=== PATIENT | male | born 1985 | race Caucasian/White ===

== ENCOUNTER 2017-05-07 10:58 | Emergency (ER) | payer MEDICAID ==
[2017-05-07] MEDS ORDERED: HYDROmorphone 2 MG/ML SDV IM ONE (11:23)
[2017-05-07] MEDS ORDERED: Ondansetron 8 MG Tab.DIS PO ONE (11:24)
[2017-05-07 11:50] VITALS: BP 146/94
--- NOTE | 2017-05-10 15:08 | ER ---
DATE SEEN: 05/07/2017 TIME SEEN: The patient was seen at 1108 hours. HISTORY OF PRESENT ILLNESS: Yesterday, he washed his truck. He had mild low back pain noted. He laid down. After he woke up, he could not walk, as he had so much back discomfort. He has occasional mild right leg numbness minimal proximal thigh, but that is infrequent. He has no difficulty passing urine or stool or incontinence of either. No loss of sensation in lower extremities. No paresthesias or hypoesthesia in lower extremities presently. He has marked pain with walking. He walks bent over. His weight is 302 pounds. Rarely has alcohol, maybe once a week, and smoking negative. He has been taking care of his daughter this week, who he thinks has genetic abnormalities, although genetic tests turned out normal. Review of the patient's [place] Prescribing Monitoring Program shows no evidence for use of narcotics. MEDICATIONS: The patient is not on any medicines currently. ALLERGIES: Penicillin. REVIEW OF SYSTEMS: Otherwise negative, except he is obese at 302 pounds. PHYSICAL EXAMINATION: VITAL SIGNS: Blood pressure 146/94, heart rate 72, respirations 18, oxygen saturation 98%, and temperature is 36.6 degrees centigrade. 136.985 kg. GENERAL: Alert fellow who is lying on his left side. He has marked pain. He does not want to move. Moving on the bed causes marked pain. HEENT: PERRLA intact. Pharynx without abnormality. LUNGS: Clear. HEART: Without murmur. ABDOMEN: Markedly increased abdominal girth. Obese. EXTREMITIES: Mild paraspinal muscle discomfort left and right paraspinal area, L3, 4, 5, more on the right, less on the left. No spinous process tenderness. No interspinous process tenderness. Straight leg raise markedly painful on the right, none on the left. No hypoesthesia. Deep tendon reflexes upper and lower extremities symmetrical 1+ normoactive. ASSESSMENT: 1. Low back strain, possible disk involvement. 2. Extensive obesity (302 pounds). 3. No chemical abuse noted. [place] Prescribing Program is negative database for him. PLAN: 1. Robaxin 750 mg q.i.d. 2. Twelve tabs of Percocet 325-7.5 mg, 1 tablet q.4 hours p.r.n. pain. 3. Tylenol 1000 mg and ibuprofen 600 mg, take together every 6 hours for pain. For breakthrough pain, use Percocet. 4. I have noted to him that we have an opioid epidemic in this country and the CDC suggests that there is less chance of becoming opioid dependent in 1 year if no more than 3 days of narcotic given to the patient. The patient to follow up with doctor in a week, earlier if worse. He had a good response to the pain injection. /[id number] ANNIKA/TENZIN MAHAJAN
== END 2017-05-07 11:50 | disposition home or self-care (01) ==
LOC: FB.ED 10:58
DX: S39.012A Strain of muscle, fascia and tendon of lower back, initial encounter (principal); E66.9 Obesity, unspecified; Z88.0 Allergy status to penicillin; X50.9XXA Other and unspecified overexertion or strenuous movements or postures, initial encounter; Y93.89 Activity, other specified
CPT/HCPCS: 96372; 99283; A9270; J1170

== ENCOUNTER 2017-05-16 05:33 | Emergency (ER) | payer MEDICAID ==
[2017-05-16] MEDS ORDERED: Ketorolac 60 MG/2 ML SDV IM ONE (05:44)
--- NOTE | 2017-05-16 06:03 | EDM.PDOC ---
ED HPI GENERAL MEDICAL PROBLEM - General Chief Complaint: Back Pain or Injury Stated Complaint: LOWER AND RT LEG PAIN Time Seen by Provider: 05/16/17 05:39 Source of Information: Reports: Patient, Family History Limitations: Reports: Physical Impairment - History of Present Illness INITIAL COMMENTS - FREE TEXT/NARRATIVE: 32 y.o.w.m, morbid obese, come to ed with his SO due to sudden onset of r lower back pain after he attempted to get out of his bed. Pt was seen for same last week in this ed. He received Dilaudid, pain subsided. Pt denied stool or urine incontinence. No direct trauma, however. Pt is not able to ambulate due to pain. No N/V/D or any other acute medical issues at his time. Onset: Sudden Onset Date: 05/15/17 Onset Time: 07:00 Duration: Hour(s): Location: Reports: Back Quality: Reports: Ache, Burning, Dull, Pressure Severity: Severe Improves with: Reports: Cold Therapy, Medication Worsens with: Reports: Movement Context: Reports: Lifting (washing the car) Lower Back Pain Score (Numeric/FACES): 8 - Related Data Allergies Allergy/AdvReac Type Severity Reaction Status Date / Time penicillin Allergy Rash Verified 05/16/17 05:35 Home Meds: Home Meds Methocarbamol [Robaxin-750] 750 mg PO QID #60 tablet 05/07/17 [Rx] Naproxen 500 mg PO BID 05/16/17 [History] Past Medical History - Past Health History Medical/Surgical History: Denies Medical/Surgical History HEENT History: Reports: Impaired Vision, Other (See Below) Other HEENT History: wears glasses Musculoskeletal History: Reports: Back Pain, Chronic - Infectious Disease History Infectious Disease History: Reports: Chicken Pox Social & Family History - Family History Family Medical History: Noncontributory Oncologic: Reports: Breast, Other (See Below) Other Oncologic Family History: THROAT - Tobacco Use Smoking Status *Q: Current Every Day Smoker Years of Tobacco use: 20 Packs/Tins Daily: 1 - Caffeine Use Caffeine Use: Reports: Soda - Recreational Drug Use Recreational Drug Use: No ED ROS GENERAL - Review of Systems Review Of Systems: See Below Constitutional: Reports: No Symptoms HEENT: Reports: No Symptoms Respiratory: Reports: No Symptoms Cardiovascular: Reports: No Symptoms Endocrine: Reports: No Symptoms GI/Abdominal: Reports: No Symptoms : Reports: No Symptoms Musculoskeletal: Reports: Back Pain Skin: Reports: No Symptoms Neurological: Reports: No Symptoms Psychiatric: Reports: No Symptoms Hematologic/Lymphatic: Reports: No Symptoms Immunologic: Reports: No Symptoms ED EXAM,LOWER BACK PAIN/INJURY - Physical Exam Exam: See Below Exam Limited By: Physical Impairment General Appearance: Obese (morbid) Eye Exam: Bilateral Eye: Normal Inspection Ears: Normal External Exam Nose: Normal Inspection Throat/Mouth: Normal Inspection Head: Atraumatic, Normocephalic Neck: Normal Inspection, Supple Respiratory/Chest: No Respiratory Distress, Lungs Clear, Normal Breath Sounds Cardiovascular: Normal Peripheral Pulses, Regular Rate, Rhythm, No Edema GI/Abdominal: Normal Bowel Sounds, Soft, Non-Tender, No Organomegaly (Male) Exam: Deferred Rectal (Males) Exam: Deferred Back Exam: Decreased Range of Motion, Muscle Spasm, Paraspinal Tenderness Extremities: Non-Tender, Normal Capillary Refill, Other (lower extr. weakness) Neurological: Alert, Normal Mood/Affect, Normal Dorsiflexion, CN II-XII Intact, Normal Plantar Flexion, Normal Reflexes Psychiatric: Normal Affect, Normal Mood Skin Exam: Warm, Dry, Intact, Normal Color, No Rash Lymphatic: No Adenopathy Course - Vital Signs Text/Narrative:: 32 y.o.w.m, morbid obese, came to ed with his SO due to sudden onset of r lower back pain after he attempted to get out of his bed. Pt was seen for same last week in this ed. He received Dilaudid, pain subsided. Pt denied stool or urine incontinence. No direct trauma, however. Pt is not able to ambulate due to pain. No N/V/D or any other acute medical issues at his time. PE: Mobid obese, R sided parvertebral tenderness, equal PTR Imagin) MRI T spine: Posterior epidural Fat with narrowing of the thoracic spinal canal 2) MRI Lumbar spine: a) Cicumferential dis bulging at L5-S1 with mild canal narrowing b) spinal canal mildly narrowed posterior to L4-L5 Impression: Disc bulge L5-S1 Tx: Ice, Toradol, Norflex and Dilaudid Consultation: Chirag Reyes: Will see the patient in the ED Last Recorded V/S: Last Vital Signs Temp 36.5 C 05/16/17 09:01 Pulse 71 06/26/17 09:01 Resp 15 05/16/17 09:01 BP 127/72 05/16/17 09:01 Pulse Ox 96 05/16/17 09:01 - Orders/Labs/Meds Orders: Active Orders 24 hr Category Date Time Status Cooling Warming Measures [RC] ASDIRECTED Care 05/16/17 05:45 Active Lumbar Spine Comp wo Cont [MR] Stat Exams 05/16/17 05:51 Taken Thoracic Spine Comp wo Cont [MR] Stat Exams 05/16/17 05:51 Taken Ice Pack [Ice Therapy] [OM.PC] Routine Oth 05/16/17 05:45 Ordered Meds: Medications Discontinued Medications Generic Name Dose Route Start Last Admin Trade Name Freq PRN Reason Stop Dose Admin Hydromorphone HCl 1 mg 05/16/17 06:23 05/16/17 06:34 Dilaudid IM 05/16/17 06:24 1 mg ONETIME STA Administration Ketorolac Tromethamine 60 mg 05/16/17 05:44 05/16/17 05:58 Toradol IM 05/16/17 05:45 60 mg ONETIME ONE Administration Orphenadrine Citrate 60 mg 05/16/17 06:18 05/16/17 06:34 Norflex IM 05/16/17 06:19 60 mg ONETIME STA Administration Departure - Departure Time of Disposition: 10:57 Disposition: Home, Self-Care 01 Condition: Fair Clinical Impression: Bulging lumbar disc - Discharge Information Instructions: Back Exercises, [id number], Back Pain, Adult, [id number] Referrals: Chirag Hermosillo MD [Physician] - Chirag Truong MD [Primary Care Provider] - Forms: ED Department Discharge Additional Instructions: See Dr. Hermosillo as discussed. - My Orders Last 24 Hours: My Active Orders 05/16/17 05:45 Cooling Warming Measures [RC] ASDIRECTED Ice Pack [Ice Therapy] [OM.PC] Routine 05/16/17 05:51 Lumbar Spine Comp wo Cont [MR] Stat Thoracic Spine Comp wo Cont [MR] Stat - Assessment/Plan Last 24 Hours: My Active Orders 05/16/17 05:45 Cooling Warming Measures [RC] ASDIRECTED Ice Pack [Ice Therapy] [OM.PC] Routine 05/16/17 05:51 Lumbar Spine Comp wo Cont [MR] Stat Thoracic Spine Comp wo Cont [MR] Stat
[2017-05-16] MEDS ORDERED: HYDROmorphone 2 MG/ML SDV IM STA (06:23)
[2017-05-16 09:01] VITALS: BP 127/72
--- NOTE | 2017-05-16 17:51 | CONS ---
DATE OF CONSULTATION: 05/16/2017 HISTORY OF PRESENT ILLNESS: This gentleman states that he has been having back pain for a number of years and has not really sustained any injuries nor has he been hospitalized for it. He states that one time he was carrying shingles up and down a ladder for about 8 hours and then had such pain he could not move. His current pain started about a week ago. He has noticed some pain and then was washing and waxing his pickup when he later developed pain. He described the pain as a 10 and with any type of movement, it was uncomfortable for him. He was examined by a physician and given some medication, did not get better, saw Dr. Chirag Truong, who stopped some of his other medicine and put him on a mild muscle relaxant and Naprosyn. This has not alleviated his discomfort and this morning he states it was difficult for him to weight bear and even to kind of rollover in bed. The patient states that coughing does bother him. He really has not sneezed or noticed any difficulty with having bowel movements. The pain restricts his motion significantly. He reports he was on some codeine by Dr. Truong. 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 He reports no loss of bowel or bladder control and pain is in the right buttock going down his right leg. He describes some "numbness at times," but at other times it is not really there. Again, weakness has been noted but this is primarily because of pain where he feels the leg will not support him. He denies any injuries. PHYSICAL EXAMINATION: This gentleman today on examination has a moderate amount of difficulty going from the wheelchair to the exam table. In the sitting position, he has good hip range of motion. He has moderate pain on percussion in the lower lumbar spine. The pain is accentuated with his legs flexed 90 degrees at the hips and the knees 90 degrees, he rests comfortably but with sags at about 50-60 degrees on the right side produces discomfort for him as the straight leg raising, left lower extremity negative. He has good hip abductor and adductor strength. He has good hip flexion but extension of the thigh is weak on the right compared to the left. The patient also has some weak flexion on the right versus left knee. He has good EHL strength bilaterally. Sensation is intact and equal in all dermatomal areas. There is no clonus. Knee and ankle jerks +2/4 and equal bilaterally. DIAGNOSTIC DATA: I did review his MRI, and MRI of the thoracic spine is actually normal. He does have some impingement of the right SI nerve L5-S1. ASSESSMENT: Sciatica caused by nerve impingement, right L5-S1. PLAN: We will have him do rest at home and stop any strengthening exercises that he has been receiving in PT. Stretching exercises will also be stopped. When he is home, he will lay on a heating pad with a couple of pillows underneath his legs to take off stress of the lower lumbar spine. The patient also will be started on prednisone 7.5 mg p.o. t.i.d. for one week, followed by his 500 mg Naprosyn tablets prescribed by Dr. Truong. The patient will also be started on Flexeril 10 mg p.o. t.i.d., 30 tablets, one refill. The patient is told that if he has any increasing pain, loss of strength, loss of bowel or bladder control, or gets worse, he should come to emergency room. Otherwise, I can see him in approximately 2-1/2 weeks to make sure he is doing well. I have informed him that he may need surgery on this condition. /[id number] KANCHAN/TENZIN
== END 2017-05-16 10:55 | disposition home or self-care (01) ==
LOC: FB.ED 05:33
DX: M51.17 Intervertebral disc disorders with radiculopathy, lumbosacral region (principal); M79.604 Pain in right leg; E66.01 Morbid (severe) obesity due to excess calories; F17.210 Nicotine dependence, cigarettes, uncomplicated; Z79.1 Long term (current) use of non-steroidal anti-inflammatories (NSAID); Z79.899 Other long term (current) drug therapy; Z88.0 Allergy status to penicillin
CPT/HCPCS: 72146; 72148; 96372; 99283; J1170; J1885; J2360